=== PATIENT | female | born 1965 | race Asian ===

== ENCOUNTER 2023-09-23 10:30 | Emergency (ER) | payer BC ==
[~2023-09-23] VITALS: Ht 160 cm; Wt 56.1 kg
[2023-09-23] VITALS (7 sets, daily range): BP systolic 100–109; BP diastolic 62–71; PULSE 67–75; RESP 14–16; TEMP 98.3; O2SAT 96–97
[2023-09-23 11:12] LABS: Basophils # (auto) 0 10 ^3/uL (0-0.2); Eosinophils # (auto) 0.1 10 ^3/uL (0-0.8); Hematocrit 36.7 % (36.0-46.0); Lymphocytes # (auto) 1.6 10 ^3/uL (0.4-5.4); Mean Corpuscular Volume 79.7 fL (80.0-100.0); Neutrophils # (auto) 3.2 10 ^3/uL (1.6-8.6); Nucleated Red Blood Cells % 0.1 %; Red Cell Distribution Width 14.8 % (11.8-14.3); White Blood Cell 5.4 10^3/uL (4.4-10.8)
[2023-09-23 11:14] LABS: Basophils % (auto) 0.7 % (0.0-2.0); Eosinophils % (auto) 2.2 % (0.0-7.0); Hemoglobin 12.4 g/dL (12.2-16.2); Lymphocytes % (auto) 29.5 % (10.0-50.0); Mean Corpuscular Hgb Conc. 33.9 g/dL (32.0-36.0); Monocytes # (auto) 0.4 10 ^3/uL (0-1.3); Monocytes % (auto) 8.1 % (0.0-12.0); Neutrophils % (auto) 59.5 % (37.0-80.0)
[2023-09-23 11:33] LABS: Alanine Aminotransferase 68 U/L (7-40); Albumin 4.5 g/dL (3.2-4.8); Alkaline Phosphatase 142 U/L (46-116); Anion Gap 3 (5-15); Aspartate Aminotransferase 92 U/L (13-40); BUN/Creatinine Ratio 15.5 (10.0-20.0); Bilirubin, Total 0.4 mg/dL (0.2-1.0); Blood Urea Nitrogen 11 mg/dL (9-23); Calcium 9.7 mg/dL (8.5-10.1); Carbon Dioxide 25 mmol/L (20-30); Chloride 111 mmol/L (98-107); Glucose 104 mg/dL (74-106); Potassium 4.3 mmol/L (3.5-5.1); Sodium 139 mmol/L (136-145)
[2023-09-23 11:34] LABS: Total Protein 7.5 g/dL (5.7-8.2)
[2023-09-23 12:11] LABS: Anisocytosis Slight; Platelet Estimate Markedly Decreased
== END 2023-09-23 23:20 | disposition home or self-care (01) ==
LOC: ER 10:30
DX: D69.6 Thrombocytopenia, unspecified (principal)
CPT/HCPCS: 36415; 36430; 80053; 85025; 86850; 86900; 86901; 99285; P9035

== ENCOUNTER 2023-10-18 22:00 | Inpatient (IN) | payer BC ==
[~2023-10-18] VITALS: Ht 160 cm; Wt 60.4 kg
[2023-10-18 22:51] LABS: Eosinophils # (auto) 0.2 10 ^3/uL (0-0.8); Lymphocytes # (auto) 2.2 10 ^3/uL (0.4-5.4); Mean Corpuscular Hgb Conc. 33.1 g/dL (32.0-36.0); Monocytes # (auto) 0.6 10 ^3/uL (0-1.3); Neutrophils # (auto) 3.1 10 ^3/uL (1.6-8.6); Nucleated Red Blood Cells % 0.1 %; White Blood Cell 6.2 10^3/uL (4.4-10.8)
[2023-10-18 22:53] LABS: Basophils # (auto) 0 10 ^3/uL (0-0.2); Basophils % (auto) 0.8 % (0.0-2.0); Eosinophils % (auto) 3.6 % (0.0-7.0); Hematocrit 36.9 % (36.0-46.0); Hemoglobin 12.2 g/dL (12.2-16.2); Lymphocytes % (auto) 35.5 % (10.0-50.0); Mean Corpuscular Volume 81.5 fL (80.0-100.0); Monocytes % (auto) 9.4 % (0.0-12.0); Neutrophils % (auto) 50.7 % (37.0-80.0); Red Blood Cells 4.53 10^6/uL (4.0-5.20); Red Cell Distribution Width 14.5 % (11.8-14.3)
[2023-10-18 23:09] LABS: Alanine Aminotransferase 49 U/L (7-40); Albumin 4.4 g/dL (3.2-4.8); Alkaline Phosphatase 140 U/L (46-116); Anion Gap 4 (5-15); Aspartate Aminotransferase 31 U/L (13-40); BUN/Creatinine Ratio 15.3 (10.0-20.0); Bilirubin, Total 0.3 mg/dL (0.2-1.0); Blood Urea Nitrogen 11 mg/dL (9-23); Calcium 9.9 mg/dL (8.7-10.4); Carbon Dioxide 30 mmol/L (20-30); Chloride 109 mmol/L (98-107); Glucose 111 mg/dL (74-106); Potassium 4.4 mmol/L (3.5-5.1); Sodium 143 mmol/L (136-145); Total Protein 7.1 g/dL (5.7-8.2)
[2023-10-18 23:29] LABS: Platelet Estimate Markedly Decreased
[2023-10-19] MEDS: MECLIZINE HCL 25 MG TAB PO ONE (02:15)
[2023-10-19] MEDS: LORazepam 2MG/ML-1ML VIAL IV ONE (03:34)
[2023-10-19 07:30] VITALS: BP 91/57; PULSE 20; PULSE 77; RESP 17; RESP 18; TEMP 98.2; O2SAT 96
[2023-10-19 08:04] VITALS: BP 120/80; PULSE 83; RESP 19; TEMP 98.2
[2023-10-19 08:19] VITALS: BP 119/72; PULSE 89; RESP 17; TEMP 98.2
[2023-10-19] MEDS ORDERED: ONDANSETRON HCL 4 MG/2 ML VIAL IV PRN (09:15)
[2023-10-19] MEDS ORDERED: DOCUSATE SOD 100 MG CAP PO PRN (09:15)
[2023-10-19] MEDS ORDERED: NITROGLYCERIN 0.4 MG SL TAB SL PRN (09:15)
[2023-10-19] MEDS: methylPREDNISolone SOD SUCC 125 MG/2 ML VL IV SCH (10:28)
[2023-10-19 10:35] LABS: INR 0.94 (0.9-1.15)
[2023-10-19] MEDS: LORazepam 2MG/ML-1ML VIAL IV PRN (16:30)
[2023-10-19 18:18] VITALS: PULSE 95; RESP 16; O2SAT 96
[2023-10-19 20:00] VITALS: RESP 18; O2SAT 96
[2023-10-19 21:00] VITALS: BP 124/71; PULSE 82; RESP 17; TEMP 97.3; O2SAT 96
[2023-10-20] MEDS: MORPHINE SULFATE INJ 2 MG/ml SYRG IV PRN (03:04)
[2023-10-20 04:50] VITALS: BP 101/55; PULSE 77; RESP 19; TEMP 97.5; O2SAT 96
[2023-10-20 07:03] LABS: Basophils # (auto) 0 10 ^3/uL (0-0.2); Eosinophils # (auto) 0 10 ^3/uL (0-0.8); Hemoglobin 11.5 g/dL (12.2-16.2); Monocytes # (auto) 0.5 10 ^3/uL (0-1.3); Monocytes % (auto) 4.8 % (0.0-12.0); Red Cell Distribution Width 14.8 % (11.8-14.3)
[2023-10-20 07:07] LABS: Basophils % (auto) 0.2 % (0.0-2.0); Hematocrit 34.2 % (36.0-46.0); Lymphocytes % (auto) 9.8 % (10.0-50.0); Mean Corpuscular Hemoglobin 27.1 pg (28.0-32.0); Mean Corpuscular Hgb Conc. 33.5 g/dL (32.0-36.0); Mean Corpuscular Volume 80.8 fL (80.0-100.0); Neutrophils # (auto) 8.4 10 ^3/uL (1.6-8.6); Neutrophils % (auto) 85.2 % (37.0-80.0); Nucleated Red Blood Cells % 0.1 %; Red Blood Cells 4.24 10^6/uL (4.0-5.20); White Blood Cell 9.8 10^3/uL (4.4-10.8)
[2023-10-20 07:14] LABS: Alanine Aminotransferase 53 U/L (7-40); Albumin 3.9 g/dL (3.2-4.8); Alkaline Phosphatase 125 U/L (46-116); Anion Gap 6 (5-15); Aspartate Aminotransferase 35 U/L (13-40); BUN/Creatinine Ratio 19.6 (10.0-20.0); Blood Urea Nitrogen 10 mg/dL (9-23); Calcium 9.3 mg/dL (8.7-10.4); Carbon Dioxide 23 mmol/L (20-30); Chloride 110 mmol/L (98-107); Glucose 120 mg/dL (74-106); Sodium 139 mmol/L (136-145)
[2023-10-20 07:15] LABS: Bilirubin, Total 0.4 mg/dL (0.2-1.0); Total Protein 6.5 g/dL (5.7-8.2)
[2023-10-20 08:00] VITALS: PULSE 81; RESP 16; O2SAT 96
[2023-10-20 08:33] VITALS: BP 96/59; PULSE 81; RESP 16; TEMP 97.9; O2SAT 96
[2023-10-20 08:48] LABS: Large Platelets RARE; Platelet Estimate Decreased
[2023-10-20 12:42] VITALS: BP 110/81; PULSE 78; RESP 16; TEMP 98.2; O2SAT 99
[2023-10-20] MEDS ORDERED: ACETAMINOPHEN 325 MG TAB PO PRN (15:00)
[2023-10-20] MEDS: methylPREDNISolone SOD SUCC 125 MG/2 ML VL IV SCH (15:55)
[2023-10-20 17:00] VITALS: BP 95/59; PULSE 90; RESP 14; TEMP 98.9; O2SAT 98
== END 2023-10-20 18:00 | disposition left against medical advice (07) | DRG 813 ==
LOC: ER 22:00 → OVERFLOW 10-19 09:16 → WEST WING 10-19 18:16
PROVIDERS: ADMIT Nurse Practitioner Family; ATTEND Family Medicine
PROC: 30233R1 Transfusion of Nonautologous Platelets into Peripheral Vein, Percutaneous Approach (ICD-10-PCS; principal; 2023-10-19)
DX: D69.6 Thrombocytopenia, unspecified (principal); F17.210 Nicotine dependence, cigarettes, uncomplicated; Z53.29 Procedure and treatment not carried out because of patient's decision for other reasons; Z80.0 Family history of malignant neoplasm of digestive organs
CPT/HCPCS: 36415; 76700; 80053; 82607; 83615; 84436; 84443; 84550; 85025; 85362; 85379; 85384; 85610; 85613; 85670; 85705; 85732; 86147; 86200; 86703; 86803; 86850; 86860; 86870; 86880; 86900; 86901; 86905; 86906; 86971; 87340; 96374; G0378